=== PATIENT | female | born 1950 | race Caucasian/White ===

== ENCOUNTER → 2024-10-15 | Outpatient (CLI) | payer OTHER, SELFPAY ==
[2024-10-15 14:15] LABS: Glucose Estimated Average 131 mg/dL (80-131); Hemoglobin A1C 6.2 % Hgb (4.8-6.0)
[2024-10-15 14:17] LABS: Cardiac Risk Estimate 5.7 RATIO (3.7-5.6); Cholesterol 212 mg/dL (132-200); HDL Cholesterol 37 mg/dL (40-60); LDL Cholesterol,Calculated 115 mg/dL (0-130); Triglycerides 298 mg/dL (30-150)
== END | disposition home or self-care (01) ==
LOC: COPL 11:31
PROVIDERS: PCP Family Medicine; Referring Provider Family Medicine; Visit Provider Family Medicine
DX: E11.65 Type 2 diabetes mellitus with hyperglycemia (principal); E78.2 Mixed hyperlipidemia
CPT/HCPCS: 36415; 80061; 83036

== ENCOUNTER → 2025-01-24 | Outpatient (CLI) | payer OTHER, SELFPAY ==
[2025-01-24 11:39] LABS: Glucose Estimated Average 134 mg/dL (80-131); Hemoglobin A1C 6.3 % Hgb (4.8-6.0)
[2025-01-24 11:47] LABS: Alanine Aminotransferase 37 U/L (10-49); Albumin, Serum 4.5 gm/dL (3.4-4.8); Albumin/Globulin Ratio 1.7 (1.2-2.2); Alkaline Phosphatase 39 U/L (46-116); Anion Gap 8 (7-16); Aspartate Amino Transferase 56 U/L (0-34); BUN/Creatinine Ratio 19 Ratio (12-20); Bilirubin,Total 0.5 mg/dL (0.3-1.2); Blood Urea Nitrogen 26 mg/dL (9-23); Calcium 9.8 mg/dL (8.3-10.6); Calcium (Corrected) 9.8 mg/dL (8.5-10.1); Carbon Dioxide 28.9 mMol/L (20.0-31.0); Chloride 103 mMol/L (98-107); Cholesterol 139 mg/dL (132-200); Creatinine (Component) 1.4 mg/dL (0.6-1.3); Globulin 2.6 gm/dL (2.3-3.5); Glucose 133 mg/dL (74-106); HDL Cholesterol 28 mg/dL (40-60); LDL Cholesterol,Calculated 63 mg/dL (0-130); Osmolality,Calculated 286 (275-295); Potassium 4.1 mMol/L (3.4-5.1); Sodium 140 mMol/L (136-145); Total Protein 7.1 gm/dL (5.7-8.2); Triglycerides 239 mg/dL (30-150); eGFR 39 See Note
[2025-01-24 11:58] LABS: Creatinine MALB Rnd Ur 96 mg/dL (30-125); Microalbumin Creat Ratio 9 mg/gCrea (<30); Microalbumin, Random Urine 9 mg/L (0-300)
== END | disposition home or self-care (01) ==
LOC: COPL 09:52
PROVIDERS: PCP Family Medicine; Referring Provider Family Medicine; Visit Provider Family Medicine
DX: E11.65 Type 2 diabetes mellitus with hyperglycemia (principal)
CPT/HCPCS: 36415; 80053; 80061; 82043; 82570; 83036

== ENCOUNTER → 2025-05-22 | Outpatient (CLI) | payer OTHER, SELFPAY ==
[2025-05-22 11:45] LABS: Glucose Estimated Average 151 mg/dL (80-131); Hemoglobin A1C 6.9 % Hgb (4.8-6.0)
[2025-05-22 11:54] LABS: Alanine Aminotransferase 33 U/L (10-49); Albumin, Serum 4.4 gm/dL (3.4-4.8); Alkaline Phosphatase 44 U/L (46-116); Aspartate Amino Transferase 55 U/L (0-34); Bilirubin,Direct 0.1 mg/dL (0.0-0.3); Bilirubin,Total 0.3 mg/dL (0.3-1.2); Cardiac Risk Estimate 5.9 RATIO (3.7-5.6); Cholesterol 142 mg/dL (132-200); HDL Cholesterol 24 mg/dL (40-60); LDL Cholesterol,Calculated 56 mg/dL (0-130); Total Protein 6.9 gm/dL (5.7-8.2); Triglycerides 312 mg/dL (30-150)
== END | disposition home or self-care (01) ==
LOC: COPL 10:53
PROVIDERS: PCP Family Medicine; Referring Provider Family Medicine; Visit Provider Family Medicine
DX: E78.2 Mixed hyperlipidemia (principal); E11.9 Type 2 diabetes mellitus without complications
CPT/HCPCS: 36415; 80061; 80076; 83036

== ENCOUNTER → 2025-07-15 | Outpatient (CLI) | payer OTHER, SELFPAY ==
--- NOTE | 2025-07-15 13:30 | XR_ITS ---
Examination: Screening digital mammography, bilateral Computer aided detection 3-D breast Tomosynthesis, bilateral Date and time of exam: July 15, 2025, 1337 hours, compared to mammograms dating to November 20, 2015 Indication: Screening Technique: Nonmagnified MLO, CC views of the breasts to been obtained, reconstructed from 3-D Tomosynthesis images. R2 computer aided detection program utilized for evaluation of suspicious masses and/or abnormal calcifications. 3-D Tomosynthesis images obtained. Findings: The breasts are heterogeneously dense, which may obscure small masses Grouped microcalcifications retroareolar region right breast No definite suspicious masses Impression: BI-RADS Category 0: Incomplete: Need additional imaging evaluation Recommend follow-up Indications Spot compression views of microcalcifications retroareolar region right breast as well as bilateral breast sonography to complete the workup.
== END | disposition home or self-care (01) ==
LOC: CDIM 13:25
PROVIDERS: PCP Family Medicine; Referring Provider Family Medicine; Visit Provider Family Medicine
DX: Z12.31 Encounter for screening mammogram for malignant neoplasm of breast (principal); R92.0 Mammographic microcalcification found on diagnostic imaging of breast; R92.8 Other abnormal and inconclusive findings on diagnostic imaging of breast
CPT/HCPCS: 77063; 77067

== ENCOUNTER → 2025-08-14 | Outpatient (CLI) | payer OTHER, SELFPAY ==
--- NOTE | 2025-08-14 13:00 | XR_ITS ---
Examination: Breast ultrasound complete, bilateral Date and time of exam: August 14, 2025, 1324 hours INDICATIONS: Mammogram July 15, 2025 microcalcifications retroareolar region right breast, family history breast cancer Technique: Real-time grayscale ultrasonographic imaging bilateral breasts, including all 4 quadrants as well as nipple retroareolar and axillary regions. Findings: Sonographic images right breast Multiple benign cysts 12:00 calcifications with shadowing 4 mm No solid nodules Sonographic images left breast 3:00 cyst 4 x 3 mm Axillary lymph nodes IMPRESSION: BI-RADS Category 2: Benign findings
--- NOTE | 2025-08-14 14:00 | XR_ITS ---
Examination: Diagnostic digital mammography, unilateral, right Computer aided detection 3-D breast Tomosynthesis, unilateral Date and time of exam: 08/14/2025, 1:44 p.m. Comparisons: October 2020 through July 2025 Indications: Further evaluation of calcifications seen on prior screening exam Technique: Nonmagnified MLO, CC views of the right breast have been obtained, reconstructed from 3-D Tomosynthesis images. R2 computer aided detection program utilized for evaluation of suspicious masses and/or abnormal calcifications. 3-D Tomosynthesis images obtained. Technologist: Findings: The breasts are heterogeneously dense, which may obscure small masses. Grouped amorphous calcifications persist at 12:00. Otherwise, no evidence of abnormal masses or suspicious calcifications. Impression: Grouped amorphous calcifications 12:00 right represent a suspicious abnormality. Stereotactic biopsy is recommended.
== END | disposition home or self-care (01) ==
PROVIDERS: PCP Family Medicine; Referring Provider Family Medicine; Visit Provider Family Medicine
DX: R92.341 Mammographic extreme density, right breast (principal); R92.1 Mammographic calcification found on diagnostic imaging of breast; Z80.3 Family history of malignant neoplasm of breast
CPT/HCPCS: 76641; 77061; 77065; G0279

== ENCOUNTER → 2025-08-16 | Outpatient (CLI) | payer OTHER, SELFPAY ==
[2025-08-16 11:35] LABS: Glucose Estimated Average 128 mg/dL (80-131); Hemoglobin A1C 6.1 % Hgb (4.8-6.0)
== END | disposition home or self-care (01) ==
LOC: COPL 10:14
PROVIDERS: PCP Family Medicine; Referring Provider Family Medicine; Visit Provider Family Medicine
DX: E11.65 Type 2 diabetes mellitus with hyperglycemia (principal)
CPT/HCPCS: 36415; 83036